=== PATIENT | female | born 1955 | race Caucasian/White ===

== ENCOUNTER 2022-02-07 06:51 | Day surgery (SDC) | payer OTHER ==
[~2022-02-07] VITALS: Ht 160 cm; Wt 71.7 kg
--- NOTE | 2022-02-07 07:00 | NUR ---
PT AMBULATED TO ROOM WITH CARE PERSON, POC HAS BEEN DISCUSSED WITH BOTH PARTIES. ALL QUESTIONS HAVE BEEN ADDRESSED AT THIS TIME. PT IS A&OX4. PT HAS NO C/O NAD. PT HAS CALL LIGHT AND IS ABLE TO MAKE NEEDS KNOWN. PT HAS BEEN PLACED ON FALL PRECAUTIONS AND WILL CONTINUE TO MONITOR.
[2022-02-07 07:05] VITALS: BP 140/86
[2022-02-07 07:27] LABS: HEMATOCRIT 39.8 % (37.0-47.0); HEMOGLOBIN 13.5 g/dl (12.0-16.0); IMMATURE GRANULOCYTES 0.2 % (0.0-5.0); MEAN CELL VOLUME 95.7 fL CALC (80.0-100.0); MEAN CORPUSCULAR HGB 32.5 pG CALC (26.0-32.0); MEAN CORPUSCULAR HGB CONC 33.9 g/dL CAL (32.0-36.0); NEUT# 2.6 thou/uL (2.00-7.15); RED BLOOD COUNT 4.16 mill/uL (4.20-5.60); RED CELL DISTRI WIDTH 11.8 % (11.5-15.5)
[2022-02-07 07:43] LABS: ALBUMIN 4.3 g/dL (3.2-5.0); ALKALINE PHOSPHATASE 60 u/l (38-126); ANION GAP 11 (6-22 (CALC)); BILIRUBIN, TOTAL 0.7 mg/dL (0.0-1.4); BUN 20 mg/dL (8-23); BUN/CREATININE RATIO 27 (12-20 (CALC)); CARBON DIOXIDE 31 mmol/l (22-30); CHLORIDE 98 mmol/l (95-108); CREATININE 0.7 mg/dL (0.5-1.0); GFR FOR AFR.AMER. > 60 ML/MIN (>=60 (CALC)); GFR OTHER RACES > 60 ML/MIN (>=60 (CALC)); POTASSIUM 3.4 mmol/l (3.5-5.1); SGOT/AST 35 u/l (9-36); SODIUM 136 mmol/l (137-146); TOTAL PROTEIN 7.3 g/dL (6.3-8.2)
[2022-02-07] MEDS ORDERED: LAMICTAL25 M2 PO (08:14)
[2022-02-07] MEDS ORDERED: TRAZODONE50 MG PO (08:15)
[2022-02-07] MEDS ORDERED: SEROQUEL25 MG (08:15)
[2022-02-07] MEDS ORDERED: LOSARTAN POTASS50 MG PO (08:16)
[2022-02-07] MEDS ORDERED: HYDROCHLOROT PO (08:17)
[2022-02-07] MEDS ORDERED: CRESTOR5 MG PO (08:18)
--- NOTE | 2022-02-07 09:20 | NUR ---
PT IS AWAKE AND HAS BEEN ASSISTED TO BATHROOM, PT HAS NO CHANGE TO ASSESSMENT.
[2022-02-07 09:43] VITALS: BP 96/72
--- NOTE | 2022-02-07 13:05 | NUR ---
Induction Note Patient to [facility] procedure room. Time out performed at 1305. Patient placed on monitors, Geovany hugger, bilateral wrist restraints applied for ET tube protection. Versed 5mg given IV push at 1306 Tourniquet applied to right arm Lidocaine 100mg given at 1307 IV push followed by Rocoronium 10mg at 1308 IV push and held for 90 seconds. Propofol bolus of 120mg given at 1310 IV push. Succinylcholine 80mg given IV push at 1311. Smooth intubation with 7.5 ETT. Positive CO2. Positive Auscultation for air exchange. Patient placed on ventilator for spontaneous ventilation. Placed on Propofol IV drip at 1312. OG inserted. Positive air on auscultation. Positive gastric content. Stomach washed at this time.
--- NOTE | 2022-02-07 13:25 | NUR ---
OG close note Stomach washed at this time. Naltrexone 50 mg with Clonidine 0.3 mg via OG tube. OG will be clamped for 45 minutes.
--- NOTE | 2022-02-07 14:10 | NUR ---
OG open note OG open at this time. Gastric content draining into drainage bag. OG to drain for 45 minutes. Propofol will be titrated down based on patient.
--- NOTE | 2022-02-07 15:00 | NUR ---
OG close note Stomach washed at this time. Naltrexone 50 mg with Clonidine 0.3 mg via OG tube. OG will be clamped for 45 minutes.
[2022-02-07] MEDS ORDERED: NALTREXONE50 MG PO (17:08)
[2022-02-07] MEDS ORDERED: KLONOPIN2 MG PO (17:08)
[2022-02-07] MEDS ORDERED: CLONIDINE0.1 MG PO (17:08)
--- NOTE | 2022-02-07 18:50 | NUR ---
OG close note Stomach washed at this time. Naltrexone 12.5 mg with Clonidine 0.2 mg via OG tube. OG will be clamped for 45 minutes.
--- NOTE | 2022-02-07 19:20 | NUR ---
Extubation note Closing medications given Benadryl 50mg IV push, Decadron 10mg IV push,Magnesium 4 grams IV, Zofran 8mg IV push, Octreotide 100mcg SC. Stomach washed out prior to extubation. Suctioned gastric content. OG removed. Patient extubated. Propofol Discontinued. Wrist restraints removed. Geovany hugger Removed. See [facility] Moderate sedate recovery record for further notes and assessment.
[2022-02-07 20:00] VITALS: BP 110/67
--- NOTE | 2022-02-07 20:00 | NUR ---
Patient to room 289 in no acute distress. Transfer of care to [facility] writerGISELLE Murray at bedside. 2L NC in place per orders, IVF to continue at 100ml/hr. Lungs auscultated and clear bilaterally, Patient resting comfortably, no adventitious breath sounds appreciated. Bed alarm set. See chart/EMAR for procedural details and assessments. Handoff of care at the time of this note.
--- NOTE | 2022-02-07 20:06 | NUR ---
PATIENT RESTING IN BED. NO SIGNS OF DISTRESS NOTED. NO SIGNS OF PAIN. BED IN LOW POSITION. BED ALARM ACTIVE.
[2022-02-07 22:44] VITALS: BP 147/81
--- NOTE | 2022-02-07 23:23 | NUR ---
PATIENT RESTING IN BED WITH HER EYES CLOSED. FREQUENT REDIRECTING. ANSWERS APPROPRIATELY. ASSIST X2 TO THE BSC. PATIENT HAS VOIDED ONCE THIS SHIFT ALREADY. DRINKING WATER WITHOUT DIFFICULTY. BED REMAINS IN LOW POSITION. BED ALARM ACTIVE FOR SAFETY. CALL LIGHT IN REACH.
[2022-02-08 03:45] VITALS: BP 140/71
[2022-02-08 04:06] VITALS: BP 140/71
--- NOTE | 2022-02-08 04:10 | NUR ---
PATIENT RESTING IN BED WITH EYES CLOSED. HAS PERIODS OF INCONTINENCE. NON COMPLIANT AT TIMES WITH REDIRECTION. BED REMAINS IN LOW POSITION. BED ALARM ACTIVE.
[2022-02-08 06:26] LABS: HEMATOCRIT 39.8 % (37.0-47.0); HEMOGLOBIN 13.7 g/dl (12.0-16.0); IMMATURE GRANULOCYTES 0.4 % (0.0-5.0); MEAN CELL VOLUME 95.2 fL CALC (80.0-100.0); MEAN CORPUSCULAR HGB 32.8 pG CALC (26.0-32.0); MEAN CORPUSCULAR HGB CONC 34.4 g/dL CAL (32.0-36.0); NEUT# 6.97 thou/uL (2.00-7.15); RED BLOOD COUNT 4.18 mill/uL (4.20-5.60); RED CELL DISTRI WIDTH 11.6 % (11.5-15.5)
[2022-02-08 06:37] LABS: ALBUMIN 4.2 g/dL (3.2-5.0); ALKALINE PHOSPHATASE 64 u/l (38-126); ANION GAP 12 (6-22 (CALC)); BILIRUBIN, TOTAL 0.6 mg/dL (0.0-1.4); BUN 12 mg/dL (8-23); BUN/CREATININE RATIO 21 (12-20 (CALC)); CARBON DIOXIDE 25 mmol/l (22-30); CHLORIDE 100 mmol/l (95-108); CREATININE 0.6 mg/dL (0.5-1.0); GFR FOR AFR.AMER. > 60 ML/MIN (>=60 (CALC)); GFR OTHER RACES > 60 ML/MIN (>=60 (CALC)); MAGNESIUM 2.3 mg/dL (1.6-2.3); POTASSIUM 3.7 mmol/l (3.5-5.1); SGOT/AST 35 u/l (9-36); SODIUM 133 mmol/l (137-146); TOTAL PROTEIN 6.9 g/dL (6.3-8.2)
--- NOTE | 2022-02-08 07:12 | NUR ---
PT A/OX3 RESTING IN LOW FOWLERS POSITION. ASSESSMENT COMPLETED. PT REQUESTED WATER WATER PROVIDED. HEART RHYTHM NORMAL RESPIRAITIONS UNLABORED. BOWEL SOUNDS ACTIVE. IV SITE NOTED. PT VS TO BE COLLECTED. ALL SAFETY PRECAUTIONS IN PLACE BA ACTIVE.
--- NOTE | 2022-02-08 07:30 | NUR ---
RECEIVE REPORT FROM [facility].
--- NOTE | 2022-02-08 08:00 | NUR ---
Patient to alert and oriented x3. No acute distress. 2L NC in place. Lungs clear bilaterally. Patient resting in bed pleasant at this time. Bed alarm on. Assessmente head-to toe is done. Safety and fall precautions in place. Sitter at bed side.
[2022-02-08 08:29] VITALS: BP 140/71
--- NOTE | 2022-02-08 12:00 | NUR ---
PATIENT RESTING IN BED. NO SIGNS OF DISTRESS NOTED. NO SIGNS OF PAIN. BED IN LOW POSITION. BED ALARM ACTIVE. SAFETY AND FALL PRECAUTION IN PLACE.
--- NOTE | 2022-02-08 16:28 | NUR ---
Discharge instructions given. Patient verbalizes understanding of same. Discharged in stable condition via Wheelchair to Home with staff. All belongings sent with pt.
== END 2022-02-08 16:20 | disposition home or self-care (01) | DRG 897 ==
LOC: EDBD 06:51 → ANR-I 06:51 → ANR 06:51 → MS2 18:30 → ANR 02-08 16:20
PROVIDERS: ATTEND Anesthesiology
DX: F11.20 Opioid dependence, uncomplicated (principal)
CPT/HCPCS: J2354